=== PATIENT | female | born 1965 | race Caucasian/White ===

== ENCOUNTER 2017-01-15 06:27 | Outpatient (CLI) | payer OTHER, BC ==
[~2017-01-15 06:27] MED LIST: ALPRAZOLAM0.25 MG PO; ATENOLOL50 MG PO; CALCIUM CARBON500 MG PO; COQ1030 MG PO; FIBER SELECT GUMMIES PO; FLONASE AL50 MCG/ACT; LIPITOR10 MG PO; MAGNESIUM400 M1 PO; MELATONIN5 MG PO; MULTIPLE VITAMIN PO; MULTIVITAMIN1 TAB PO; OMEGA 31000 MG PO; OMEPRAZOLE20 MG PO; PERCOCET1 TA4 PO; PROAIR HFA IN; RESTASIS0.05 % OP; SERTRALINE HCL50 MG PO; VITAMIN B COMPLE1 PO; VITAMIN D-31000 UNIT PO; ZOFRAN4 MG PO; ZYRTEC ALLERGY10 MG PO
== END 2017-01-15 23:00 ==
LOC: LAB SRH 06:27
DX: Z13.9 Encounter for screening, unspecified (principal); E78.00 Pure hypercholesterolemia, unspecified
CPT/HCPCS: 90074; 90100; 92690

== ENCOUNTER 2017-06-11 08:34 | Outpatient (CLI) | payer OTHER, BC ==
--- NOTE | 2017-06-12 09:28 | DIAGNOSTIC IMAGING REPORT ---
PROCEDURE: MG BILATERAL SCREENING W/CAD INDICATION: SCREENING TECHNIQUE: Bilateral CC and MLO digital views. COMPARISON: Mammograms 06/17/2016, 06/14/2015 and 06/04/2014. FINDINGS: Computer-aided detection applied. Minimally dense. No change. IMPRESSION: 1. Negative mammogram RESULT CODE: 1- Negative. A. A negative report should not delay biopsy if a dominant or clinically suspicious mass is present. 10-15% of cancers are not identified by x-ray. B. A negative report may reinforce clinical impression. C. Adenosis and dense breasts may obscure an underlying neoplasm. D. False positive reports average 6-10%. E.. A yearly screening mammogram is recommended. A reminder letter will be scheduled.
== END 2017-06-11 23:00 ==
LOC: MAM SRH 08:34
DX: Z12.31 Encounter for screening mammogram for malignant neoplasm of breast (principal)